=== PATIENT | female | born 1940 | race Two or more races ===

== ENCOUNTER 2016-07-25 09:05 | Day surgery (SDC) | payer OTHER ==
--- NOTE | ~2016-07-25 | EGD ---
EGD REPORT [facility] [address] [place] [address] NAME: VAL OLSON : [birth year] STATUS : REG [facility]#: [id number] AGE: 76 ADM/REG DATE : 07/25/16 MR#: [id number] REPORT SERV DATE: 07/25/16 DICTATED BY: NINI MARTINEZ DATE: 07/25/16 REPORT STATUS : Draft TRANSCRIBED BY: [employer] DATE: 07/25/16 [facility] Patient Name: Val Olson Date of : 1940 Attending MD: NINI MARTINEZ MD Procedure Date No Time: 07/25/2016 Procedure: Colonoscopy Indications: High risk colon cancer surveillance: Personal history of colonic polyps, FH of Colon Cancer - multiple second-degree relatives Referring MD: REBECCA CORTEZ Medicines: as per anesthesia Complications: No immediate complications. Procedure: Pre-Anesthesia Assessment: - ASA Grade Assessment: II - A patient with mild systemic disease. After I obtained informed consent, the scope was passed under direct vision. Throughout the procedure, the patient's blood pressure, pulse, and oxygen saturations were monitored continuously. The [facility] [id number] was introduced through the anus and advanced to the cecum, identified by appendiceal orifice and ileocecal valve. The colonoscopy was somewhat difficult due to restricted mobility of the colon, significant looping and a tortuous colon. The patient tolerated the procedure. The quality of the bowel preparation was adequate to identify polyps. Findings: The perianal and digital rectal examinations were normal. Internal hemorrhoids were found during endoscopy and were mild. Impression: - Internal hemorrhoids. Recommendation: - Continue present medications. Procedure Code(s): --- Professional --- 13373, Colonoscopy, flexible, proximal to splenic flexure; diagnostic, with or without collection of specimen(s) by brushing or washing, with or without colon decompression (separate procedure) Diagnosis Code(s): --- Professional --- K64.8, Other hemorrhoids Z86.010, Personal history of colonic polyps EGD REPORT [facility] [address]. [id number] NAME: VAL OLSON : [birth year] STATUS : REG [facility] PAT#: [id number] AGE: 76 ADM/REG DATE : 07/25/16 MR#: [id number] REPORT SERV DATE: 07/25/16 DICTATED BY: NINI MARTINEZ. DATE: 07/25/16 REPORT STATUS : Draft TRANSCRIBED BY: [email or web address] DATE: 07/25/16 Z80.0, Family history of malignant neoplasm of digestive organs CPT copyright 2013 [employer]. All rights reserved. The codes documented in this report are preliminary and upon certified procedural coder review may be revised to meet current compliance requirements. NINI MARTINEZ MD 07/25/2016 11:51 AM This report has been signed electronically. Number of Addenda: 0 Note Initiated On: 07/25/2016 11:20 AM Scope Withdrawal Time 0 hours 6 minutes 7 seconds [id number] [id number]
[~2016-07-25 09:05] MED LIST: CO Q-10100 MG PO; EFFEX75; FLORINEF0.1 MG PO; LOP25 PO; RED YEAS1; RED YEAS1 PO; SLO-NIACIN250 MG; VIT D 3
== END 2016-07-25 23:59 | disposition home health service (06) ==
LOC: DMU 09:05
PROVIDERS: Internal Medicine Gastroenterology
PROC: 0DJD8ZZ Inspection of Lower Intestinal Tract, Via Natural or Artificial Opening Endoscopic (ICD-10-PCS; principal; 2016-07-25 10:30)
DX: K64.8 Other hemorrhoids (principal); G43.909 Migraine, unspecified, not intractable, without status migrainosus; K21.9 Gastro-esophageal reflux disease without esophagitis; M19.90 Unspecified osteoarthritis, unspecified site; F32.9 Major depressive disorder, single episode, unspecified; Z98.41 Cataract extraction status, right eye; Z98.42 Cataract extraction status, left eye; Z98.890 Other specified postprocedural states; Z80.0 Family history of malignant neoplasm of digestive organs; Z86.010 Personal history of colon polyps